=== PATIENT | female | born 1965 | race Caucasian/White ===

== ENCOUNTER 2024-10-04 10:16 | Emergency (ER) | payer OTHER, SELFPAY ==
[2024-10-04 10:49] VITALS: BP 127/70; PULSE 64; RESP 16; TEMP 37.1; O2SAT 100; BMI 21.9
[2024-10-04 11:02] VITALS: PULSE 66
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
--- NOTE | 2024-10-04 11:27 | DI.CT.S_ITS ---
PROCEDURE: CT SACRUM INDICATIONS: injury TECHNIQUE: Noncontrast 3 mm thick sections acquired through the sacrum and coccyx, with sagittal and oblique coronal reformats then constructed. For radiation dose reduction, the following was used: automated exposure control. COMPARISON: None. FINDINGS: Image quality: Excellent. Bones: No displaced sacral or coccygeal fracture. No evidence of sacral insufficiency fracture. No suspicious bony lesions. Bilateral sacroiliac joint osteoarthritic changes are seen with joint space narrowing and subchondral sclerosis slightly worse on the right side. No ankylosis or bony erosive changes. Degenerative disc disease in visualized lower lumbar spine is seen. Soft tissues: No presacral masses. Visualized rectum and inferior bowel loops are normal in size and caliber. No pathologic free pelvic fluid. IMPRESSION: 1. No gross acute sacral or coccygeal fracture. Bilateral sacroiliac joint osteoarthritis. No ankylosis or bony erosion. Degenerative disc disease in visualized lower lumbar spine. 2. No gross presacral soft tissue abnormalities. No peritoneal free fluid or free air. Dictated by: Devante Leavitt M.D. on 10/04/2024 at 12:30 Approved by: Devante Laevitt M.D. on 10/04/2024 at 12:45
--- NOTE | 2024-10-04 11:27 | DI.CT.S_ITS ---
PROCEDURE: CT LUMBAR SPINE WO CON INDICATIONS: injury TECHNIQUE: Noncontrast 3 mm thick sections acquired from the T12 level to the sacrum. Sagittal and coronal reformats were constructed. For radiation dose reduction, the following was used: automated exposure control. COMPARISON: None. FINDINGS: Image quality: Excellent. Bones: There is straightening of normal lumbar lordosis. No acute vertebral body compression fractures. No suspicious lytic or blastic bony lesions. No pars defects. T12-L1: Unremarkable. L1-L2: Unremarkable. L2-L3: Unremarkable. L3-L4: Degenerative endplate changes are seen. Broad-based disc bulge and bilateral facet arthrosis with mild central canal stenosis, moderate left-sided neural foraminal narrowing and mild right-sided neural foraminal narrowing. L4-L5: Broad-based disc bulge and bilateral facet arthrosis causing moderate to severe central canal stenosis and severe bilateral neural foraminal narrowing. L5-S1: Near complete loss of disc height and degenerative endplate changes. Broad-based disc bulge and central disc herniation with moderate central canal stenosis and severe bilateral neural foraminal narrowing. Soft tissues: No retroperitoneal masses or hematomas. Visualized aorta is normal in caliber. IMPRESSION: 1. No acute lumbar spine fracture or dislocation. 2. Spondylitic changes at L3-4 through L5-S1 levels causing various degrees of central canal stenosis and bilateral neural foraminal narrowing as described above. 3. No gross paraspinous soft tissue abnormalities. Dictated by: Devante Leavitt M.D. on 10/04/2024 at 12:46 Approved by: Devante Leavitt M.D. on 10/04/2024 at 12:48
--- NOTE | 2024-10-04 11:29 | DI.RAD.S_ITS ---
PROCEDURE: XR HIP W PEL IF DONE RT 2V INDICATIONS: injury TECHNIQUE: AP pelvis with lateral view(s) of the right hip(s). COMPARISON: None. FINDINGS: Bones: No fractures or dislocations. Bilateral hip joint osteoarthritic changes are seen. No evidence of avascular necrosis of femoral head. Pelvic ring appears intact. No suspicious bony lesions. Soft tissues: The visualized bowel gas pattern is normal. No suspicious soft tissue calcifications. IMPRESSION: No acute right hip fracture or dislocation. Bilateral hip joint osteoarthritis. No evidence of avascular necrosis. Dictated by: Devante Leavitt M.D. on 10/04/2024 at 12:13 Approved by: Devante Leavitt M.D. on 10/04/2024 at 12:13
[2024-10-04] MEDS: ACETAMINOPHEN 325 MG TABLET 975 MG PO (11:45)
[2024-10-04 12:31] VITALS: BP 141/73; PULSE 59; TEMP 36.8; O2SAT 100
[2024-10-04 13:21] VITALS: BP 141/66; PULSE 60; RESP 16; O2SAT 100
== END 2024-10-04 13:21 | disposition home or self-care (01) ==
PROVIDERS: Emergency Provider Student in an Organized Health Care Education/Training Program
DX: M54.41 Lumbago with sciatica, right side (principal)
CPT/HCPCS: 72131; 72192; 73502; 99283; 99284